=== PATIENT | male | born 1970 | race Caucasian/White ===

== ENCOUNTER 2017-10-09 03:26 | Emergency (ER) | payer SELFPAY, OTHER | END 2017-10-09 06:17 | disposition left against medical advice (07) | LOC: FTE 03:26 | DX: Z53.21 Procedure and treatment not carried out due to patient leaving prior to being seen by health care provider (principal) ==

== ENCOUNTER 2018-03-16 22:43 | Emergency (ER) | payer OTHER ==
[2018-03-17] MEDS: DIPHENHYDRAMINE 50 MG INJ IV (00:08)
[2018-03-17] MEDS: KETOROLAC 30 MG INJ IV (00:09)
[2018-03-17] MEDS: ONDANSETRON 4 MG INJ IV (00:09)
[2018-03-17] MEDS: SOD CHLORIDE 0.9% 1,000 ML IV (00:10)
[2018-03-17 00:26] LABS: ADD MAN DIFF? NO
[2018-03-17 00:31] LABS: BASOPHILS % 0.1 % (0.0-2.0); HEMATOCRIT 39.3 % (42.0-52.0); HEMOGLOBIN 13.2 g/dl (14.0-18.0); LYMPHOCYTES # 0.9 10^3/ul (0.8-2.9); LYMPHOCYTES % 12.9 % (15.0-51.0); MEAN CORPUSCULAR HGB CONC 33.6 g/dl (32.0-37.0); MEAN CORPUSCULAR VOLUME 89.3 fl (82.0-101.0); MEAN PLATELET VOLUME 10.7 fl (7.4-10.4); MONOCYTE # 0.6 10^3/ul (0.3-0.9); MONOCYTES % 8.9 % (0.0-11.0); NEUTROPHIL # 5.2 10^3/ul (1.6-7.5); NEUTROPHILS % 77.8 % (39.0-77.0); PLATELET COUNT 138 10^3/UL (140-415); POSITIVE DIFF @See below; RED CELL DISTRIBUTION WIDTH 13.3 % (11.5-14.5)
[2018-03-17 00:31] LABS: WHITE BLOOD COUNT 6.7 10^3/ul (4.8-10.8)
[2018-03-17 00:55] LABS: ANION GAP 16 (8-16); BLOOD UREA NITROGEN 11 mg/dl (7-20); CALCIUM 8.8 mg/dl (8.4-10.2); CARBON DIOXIDE 25 mmol/L (21-31); CHLORIDE 99 mmol/L (97-110); CREATININE 0.88 mg/dl (0.61-1.24); GLUCOSE 125 mg/dl (70-220); POTASSIUM 3.8 mmol/L (3.5-5.1); SODIUM 136 mmol/L (135-144)
[2018-03-17 00:57] LABS: INR 1.03; PROTIME 13.6 Sec (11.9-14.9); PT RATIO 1.1
[2018-03-17 00:59] LABS: PARTIAL THROMBOPLASTIN TIME 32.8 Sec (25.0-35.0)
== END 2018-03-17 02:07 | disposition home or self-care (01) ==
LOC: FTE 22:43
DX: G43.909 Migraine, unspecified, not intractable, without status migrainosus (principal); I10 Essential (primary) hypertension; B20 Human immunodeficiency virus [HIV] disease
CPT/HCPCS: 36415; 70450; 80048; 85025; 85610; 85730; 96374; 96375; 99285-25

== ENCOUNTER 2018-06-11 15:23 | Emergency (ER) | payer OTHER | END 2018-06-11 17:05 | disposition home or self-care (01) | LOC: E/R 15:23 | DX: J18.9 Pneumonia, unspecified organism (principal); I10 Essential (primary) hypertension | CPT/HCPCS: 71045; 93005; 99284-25 ==

== ENCOUNTER 2018-11-03 16:41 | Emergency (ER) | payer OTHER ==
[2018-11-03 17:34] LABS: ADD MAN DIFF? NO
[2018-11-03 17:44] LABS: BASOPHILS % 0.5 % (0.0-2.0); EOSINOPHILS # 0.1 10^3/ul (0.0-0.5); EOSINOPHILS % 3.4 % (0.0-7.0); HEMATOCRIT 44.8 % (42.0-52.0); HEMOGLOBIN 14.7 g/dl (14.0-18.0); LYMPHOCYTES # 1.5 10^3/ul (0.8-2.9); LYMPHOCYTES % 35.2 % (15.0-51.0); MEAN CORPUSCULAR HEMOGLOBIN 29.9 pg (29.0-33.0); MEAN CORPUSCULAR HGB CONC 32.8 g/dl (32.0-37.0); MEAN CORPUSCULAR VOLUME 91.2 fl (82.0-101.0); MEAN PLATELET VOLUME 11.1 fl (7.4-10.4); MONOCYTE # 0.5 10^3/ul (0.3-0.9); MONOCYTES % 11.3 % (0.0-11.0); NEUTROPHIL # 2.1 10^3/ul (1.6-7.5); NEUTROPHILS % 49.4 % (39.0-77.0); PLATELET COUNT 188 10^3/UL (140-415); RED BLOOD COUNT 4.91 10^6/ul (4.70-6.10); RED CELL DISTRIBUTION WIDTH 12.7 % (11.5-14.5)
[2018-11-03 17:44] LABS: WHITE BLOOD COUNT 4.2 10^3/ul (4.8-10.8)
[2018-11-03] MEDS: HYDROmorphONE 1 MG/ML SYG IV (17:57)
[2018-11-03] MEDS: SOD CHLORIDE 0.9% 1,000 ML IV (17:57)
[2018-11-03] MEDS: ASPIRIN 325 MG TAB PO (17:57)
[2018-11-03] MEDS: ONDANSETRON 4 MG INJ IV (17:57)
[2018-11-03 18:02] LABS: ALANINE AMINOTRANSFERASE 132 IU/L (13-69); ALBUMIN 4.5 g/dl (3.3-4.9); ALBUMIN/GLOBULIN RATIO 0.88; ALKALINE PHOSPHATASE 129 IU/L (42-121); ANION GAP 8 (5-13); ASPARTATE AMINO TRANSFERASE 131 IU/L (15-46); BILIRUBIN,INDIRECT 0.3 mg/dl (0-1.1); BILIRUBIN,TOTAL 0.3 mg/dl (0.2-1.3); BLOOD UREA NITROGEN 14 mg/dl (7-20); CALCIUM 9.8 mg/dl (8.4-10.2); CARBON DIOXIDE 30 mmol/L (21-31); CHLORIDE 104 mmol/L (97-110); CREATINE KINASE 69 IU/L (23-200); CREATININE 1.01 mg/dl (0.61-1.24); Estimated GFR > 60 mL/min (>60); GLUCOSE 125 mg/dl (70-220); POTASSIUM 4.3 mmol/L (3.5-5.1); SODIUM 142 mmol/L (135-144); TOTAL PROTEIN 9.6 g/dl (6.1-8.1)
[2018-11-03 18:04] LABS: INR 0.89; PARTIAL THROMBOPLASTIN TIME 30.7 Sec (23.0-35.0); PROTIME 12.2 Sec (11.9-14.9)
[2018-11-03 18:13] LABS: B-TYPE NATRIURETIC PEPTIDE 60 PG/ML (0-125); CK INDEX 1.2; TROPONIN-I < 0.012 ng/ml (0.000-0.120)
[2018-11-03] MEDS: KETOROLAC 30 MG INJ IM (20:40)
== END 2018-11-03 20:45 | disposition home or self-care (01) ==
LOC: E/R 16:41
DX: G97.1 Other reaction to spinal and lumbar puncture (principal); I10 Essential (primary) hypertension; G43.101 Migraine with aura, not intractable, with status migrainosus; Z21 Asymptomatic human immunodeficiency virus [HIV] infection status; Z79.82 Long term (current) use of aspirin
CPT/HCPCS: 36415; 80053; 82550; 82553; 83880; 84484; 85025; 85610; 85730; 93005; 96361; 96372; 96374; 96375; 99284-25

== ENCOUNTER 2019-05-26 07:22 | Emergency (ER) | payer OTHER ==
[2019-05-26] MEDS: ONDANSETRON 4 MG INJ IV (07:50)
[2019-05-26] MEDS: morphine 4 MG/ML VIAL IV (07:50)
[2019-05-26] MEDS: SOD CHLORIDE 0.9% 1,000 ML IV (07:50)
[2019-05-26] MEDS: ACETAMINOPHEN 325 MG TAB PO (07:51)
[2019-05-26] MEDS: PIPER-TAZO 3.375 GM IV (PMX) 100 ML IVPB (07:57)
[2019-05-26] MEDS: SODIUM CHLORIDE 0.9% 1L BAG IV* (08:11)
== END 2019-05-26 13:22 | disposition home or self-care (01) ==
LOC: E/R 07:22
DX: J18.9 Pneumonia, unspecified organism (principal); I10 Essential (primary) hypertension; R40.2142 Coma scale, eyes open, spontaneous, at arrival to emergency department; R40.2362 Coma scale, best motor response, obeys commands, at arrival to emergency department; R40.2252 Coma scale, best verbal response, oriented, at arrival to emergency department; R10.30 Lower abdominal pain, unspecified; Z21 Asymptomatic human immunodeficiency virus [HIV] infection status; Z79.82 Long term (current) use of aspirin
CPT/HCPCS: 36415; 71045; 74176; 80053; 81001; 83605; 83690; 84484; 85025; 85610; 85730; 87040-91; 87086; 93005; 96374; 96375; 99285-25